=== PATIENT | male | born 1995 | race Caucasian/White ===

== ENCOUNTER 2017-01-20 20:38 | Emergency (ER) | payer BC, OTHER ==
[~2017-01-20] VITALS: Ht 170.2 cm; Wt 103.0 kg
[2017-01-20 20:51] VITALS: Ht 170.2 cm; Wt 103.0 kg
[2017-01-20] MEDS ORDERED: IBUP-1542 PO (22:28)
[2017-01-20] MEDS ORDERED: CLIN-73 PO (22:28)
[2017-01-20] MEDS ORDERED: TRAM50TA2 PO (22:28)
[2017-01-20] MEDS ORDERED: HYDR-3011 PO (22:28)
--- NOTE | 2017-01-20 22:37 | ERD ---
ER Documentation Chief Complaint Date/Time DATE: 01/20/17 TIME: 22:34 Chief Complaint abscess on buttock area x 3 months HPI 21-year-old male presents to emergency department for complaints of a bump on the right buttock area for 3 months now on-and-off, but is a bump 2 days ago, it has decreased in size, but continues to have the pain. Patient described the pain is sharp pain, 6/10 scale, is worse upon touching the area. Patient denies any rectal pain. Patient denies any discharge coming from the area. Patient felt the bump pop 2 days ago, some discharge came out of it, ever since, the pain has improved. Patient complete of itching on affected area. Patient did not take any medications to help with symptoms. ROS All systems reviewed and are negative except as per history of present illness. Medications Home Meds Active Scripts Hydroxyzine Hcl* (Hydroxyzine Hcl*) 25 Mg Tablet, 25 MG PO Q8H Y for ITCHING, # 30 TAB Prov:LIONEL SHARMA NP 01/20/17 Tramadol HCl (Tramadol HCl) 50 Mg Tablet, 50 MG PO Q6 Y for SEVERE PAIN LEVEL 7- 10, #20 TAB Prov:LIONEL SHARMA NP 01/20/17 Ibuprofen* (Motrin*) 600 Mg Tab, 600 MG PO Q6H Y for PAIN AND OR ELEVATED TEMP, #30 TAB Prov:LIONEL SHARMA NP 01/20/17 Clindamycin Hcl* (Clindamycin Hcl*) 300 Mg Capsule, 300 MG PO TID for 10 Days, CAP Prov:LIONEL SHARMA NP 01/20/17 Allergies Allergies: Coded Allergies: No Known Drug Allergies (Verified Allergy, Unknown, 01/20/17) PMhx/Soc Medical and Surgical Hx: pt denies Medical Hx, pt denies Surgical Hx History of Surgery: No Anesthesia Reaction: No Hx Neurological Disorder: No Hx Respiratory Disorders: No Hx Cardiac Disorders: No Hx Psychiatric Problems: No Hx Miscellaneous Medical Probl: No Hx Alcohol Use: No Hx Substance Use: No Hx Tobacco Use: No Smoking Status: Never smoker FmHx Family History: No coronary disease, No diabetes, No other Physical Exam Vitals Vital Signs Date Time Temp Pulse Resp B/P Pulse Ox O2 Delivery O2 Flow Rate FiO2 01/20/17 20:51 98.1 95 20 119/70 100 Physical Exam GENERAL: The patient is well developed and appropriate for usual state of health, in no apparent distress. CHEST: Clear to auscultation bilaterally. There are no rales, wheezes or rhonchi. HEART: Regular rate and rhythm. No murmurs, clicks, rubs or gallops. No S3 or S4. ABDOMEN: Soft, nontender and nondistended. Good bowel sounds. No rebound or guarding. No gross peritonitis. No gross organomegaly or masses. No Donahue sign or McBurney point tenderness. BACK: No midline or flank tenderness. EXTREMITIES: Equal pulses bilaterally. There is no peripheral clubbing, cyanosis or edema. No focal swelling or erythema. Full range of motion. Grossly neurovascularly intact. NEURO: Alert and oriented. Cranial nerves 2-12 intact. Motor strength in all 4 extremities with 5/5 strength. Sensation grossly intact. Normal speech and gait. SKIN: There is no apparent rash or petechia. The skin is warm and dry. HEMATOLOGIC AND LYMPHATIC: There is no evidence of excessive bruising or lymphedema. No gross cervical, axillary, or inguinal lymphadenopathy. RECTAL: Noted mild tenderness on palpation on the right buttock area, 4:00 of the rectal area, no fluctuance noted, no swelling noted, noted the scar tissue noted, no open wounds noted. Good rectal tone. Procedures/MDM Medical decision making: Patient symptoms is consistent with a perianal abscess now it is more of a cellulitis, it has already drained. Incision and drainage not indicated at this time, symptoms improved. No symptoms of sepsis at this time. No suspicion for any fistula, the tissue abscess. Patient was given for clindamycin, is advised to do hot sitz bath, take medications as prescribed. Patient was advised to return to emergency department for any worsening symptoms. Disposition: Home. Stable. Departure Diagnosis: Primary Impression: Perianal cellulitis Condition: Stable Patient Instructions: Hannah-Anal Abscess, Abx Only LIONEL SHARMA NP January 20, 2017 22:37
[2017-01-20 22:47] VITALS: BP 122/76; PULSE 89; RESP 20; TEMP 98
== END 2017-01-20 22:47 | disposition home or self-care (01) ==
LOC: FTE 20:38
DX: L03.315 Cellulitis of perineum (principal)
CPT/HCPCS: 99284